=== PATIENT | male | born 1980 | race Caucasian/White ===

== ENCOUNTER 2017-09-11 17:17 | Inpatient (IN) ==
[2017-09-11] MEDS ORDERED: *HR* HYDROmorphone (PF) 1 MG/ML SYRINGE IM ONE (19:39)
[2017-09-11] MEDS ORDERED: Ketorolac 30 MG/ML VIAL IM ONE (19:39)
--- NOTE | 2017-09-11 19:45 | Emergency Department Note ---
Disposition Clinical Impression: Kidney stone on left side, Renal colic Disposition: Admitted As Inpatient Condition: Undetermined Time of Disposition: 19:57 Abdominal Pain HPI - General Chief Complaint: ED Abdominal Pain Stated Complaint: Left kidney pain, N/V Time Seen by Provider: 09/11/17 19:22 Source: patient Mode of arrival: ambulatory Limitations: no limitations Nursing Notes Reviewed: Yes Vital Signs Reviewed: Yes - History of Present Illness HPI Narrative: 37-year-old male with recent diagnosis of kidney stone one day ago that was noted to have a 6 mm left mid ureteral kidney stone. The patient states that this was noted on CT scan and there was no urinary tract infection noted there was,. The patient was discharged home on Levsin, oxycodone. The patient went to a urologist, Dr. Eyal coe who repeated a KUB which demonstrated a mid left ureteral stone that was stable. The patient has been urinating without difficulty. The patient states that after the visit with the urologist he is continued to experience pain. The patient admits to some associated nausea without any other complaints. The patient is very uncomfortable in the room and states this feels very similar to when it occurred last night. He denies any other complaints at this time. Pt Subjective Complaint: flank pain (L) Onset (ago): Just [employer] Consistency: intermittent Location: L flank Pain Severity: severe Pain Scale: 10 Quality: stabbing Radiation: none Migration to: no migration Improves with: nothing Worsens with: nothing Context: history of similar episodes Associated symptoms: Reports: nausea Treatments prior to arrival: NSAIDs, prescription analgesics - Related Data Home Medications Medication Instructions Recorded Confirmed Folic Acid [Folic Acid] 1 mg PO DAILY 09/11/17 09/11/17 Methotrexate [Otrexup] 7.5 mg PO DARBY 09/11/17 09/11/17 Previous Rx's Medication Instructions Recorded Hyoscyamine SL [Levsin SL] 0.125 mg SL TID #21 tab.subl 09/11/17 Ondansetron HCl [Zofran] 4 mg PO TID #21 tablet 09/11/17 Oxycodone HCl/Acetaminophen 1 each PO Q4H #18 tablet 09/11/17 [Percocet 5-325 mg Tablet] Tamsulosin [Flomax] 0.8 mg PO DAILY #14 cap.er.24h 09/11/17 Allergies Allergy/AdvReac Type Severity Reaction Status Date / Time No Known Allergies Allergy Verified 09/11/17 17:42 All systems ED: reviewed and negative except as stated. Constitutional: Denies: fever, chills, weakness ENT ED: Denies: congestion Cardiovascular: Denies: chest pain Respiratory: Denies: dyspnea Gastrointestinal: Reports: abdominal pain, nausea. Denies: vomiting, diarrhea, constipation, hematemesis, melena, hematochezia Genitourinary: Reports: hematuria. Denies: urgency, dysuria, frequency, discharge, testicular pain Musculoskeletal: Denies: back pain, neck pain, arthralgia, myalgia Neurological: Denies: headache Abdominal Pain PMH - Past Medical History Medical history: Reports: no medical history Reports: kidney stone Male Surgical History: Reports: orthopedic, other Psychiatric history: Reports: no psych history - Social History Smoking status: Current every day smoker Alcohol use: Reports: none Drug use: Reports: none Physical Exam - General Limitations: no limitations General appearance: alert, in distress (Due to pain) - Head Head exam: atraumatic, normocephalic, normal inspection - Eye Eye exam: Present: normal appearance, PERRL, EOMI - ENT ENT exam: normal exam, normal oropharynx, mucous membranes moist - Neck Neck exam: Present: normal inspection, full ROM, trachea midline - Chest Chest inspection: Present: normal inspection, symmetric chest wall rise - Respiratory Respiratory exam: Present: normal lung sounds bilaterally - Cardiovascular Cardiovascular exam: Present: regular rate, normal rhythm, normal heart sounds - Abdominal Exam Abdominal exam: Present: soft, tenderness (Left flank). Absent: distention, guarding, rebound, rigidity - Extremities Exam Extremities exam: Present: normal inspection, full ROM. Absent: tenderness, pedal edema Course Vital Signs Temperature 97.6 F 09/11/17 17:39 Pulse Rate 97 09/11/17 17:39 Respiratory Rate 20 09/11/17 17:39 Blood Pressure 164/104 09/11/17 17:39 O2 Sat by Pulse Oximetry 99 09/11/17 17:39 Temperature 98.9 F 09/11/17 23:36 Pulse Rate 95 09/11/17 23:36 Respiratory Rate 16 09/11/17 23:36 Blood Pressure 136/81 09/11/17 23:36 O2 Sat by Pulse Oximetry 95 09/11/17 23:36 Oxygen Delivery Oxygen Delivery Room Air Abdominal Pain - MDM Narrative Medical decision making narrative: After speaking with Dr. Hodge and he stated that he will accept the patient to his service. The patient will likely go to the operating room tomorrow for a stone removal. The patient was made aware and agrees to plan. Basic labs are obtained. The patient was made nothing by mouth after midnight. No further questions or concerns noted at this time. - Medical Records Medical records reviewed: Yes I reviewed the patient's medical records. - Lab Data Result diagrams: 09/11/17 20:19 09/11/17 21:45 Attestation Statement - Attestation Attestation: I examined this patient and my medical decision-making was reviewed with the Resident Physician. I agree with the documented findings, disposition and treatment plan as described except to the extent set forth below. Findings consistent with kidney stone. We will admit to Dr. Hodge. Not recommending any labs at this time. We will admit for pain control.
[2017-09-11] MEDS ORDERED: *HR* HYDROmorphone (PF) 1 MG/ML SYRINGE IVP ONE (19:50)
[2017-09-11] MEDS ORDERED: Ketorolac 15 MG/ML VIAL IVP ONE (19:50)
[2017-09-11] MEDS ORDERED: 0.9 % Sodium Chloride 1,000 ML IVC ONE (19:51)
[2017-09-11 20:31] LABS: Basophils % 0.2 %; Hematocrit 45.2 % (37.5-50.1); Hemoglobin 15.5 g/dL (12.9-16.9); Immature Granulocytes % 0.8 % (0-4); Lymphocytes # 1.1 K/mcL (0.6-4.6); Lymphocytes % 7.9 %; Mean Corpuscular HGB Conc 34.3 g/dL (31.6-35.5); Mean Corpuscular Hemoglobin 32.3 pg (28.0-33.3); Mean Corpuscular Volume 94.2 fL (83.0-100.0); Mean Platelet Volume 10.1 fL (9.4-12.4); Monocytes # 0.5 K/mcL (0.0-1.3); Monocytes % 3.8 %; Neutrophils # 12.1 K/mcL (1.6-8.9); Platelet Count 208 K/mcL (140-400); Red Cell Distribution Width 13.1 % (11.5-14.5); Segmented Neutrophils % 87.3 %
[2017-09-11] MEDS ORDERED: *HR* Morphine 2 MG/ML SYRINGE IVP PRN (20:35)
[2017-09-11] MEDS ORDERED: *HR* HYDROmorphone (PF) 1 MG/ML SYRINGE IVP PRN (20:35)
[2017-09-11] MEDS ORDERED: Ondansetron 4 MG/2 ML VIAL IVP PRN (20:35)
[2017-09-11] MEDS ORDERED: *HR* HYDROcodone/Acet 5/325 mg TABLET PO PRN (20:35)
[2017-09-11] MEDS ORDERED: Naloxone 0.4 MG/ML INJ IVP PRN (20:35)
[2017-09-11] MEDS ORDERED: Ketorolac 15 MG/ML VIAL IVP PRN (20:35)
[2017-09-11] MEDS ORDERED: *HR* Promethazine 25 MG/ML VIAL IVP PRN (20:35)
--- NOTE | 2017-09-11 20:43 | Urology History & Physical ---
Date of Encounter: 09/11/17 Time of Encounter: 20:41 Assessment and Plan (1) Ureteral stone with hydronephrosis Current Visit: Yes Status: Acute Patient admitted secondary to obstructing ureteral stone and intractable pain. We'll provide pain control. Plan for attempted ureteroscopic stone extraction with holmium laser lithotripsy. Patient understands the procedure. We discussed potential risks to his urinary tract, perforation, stricture, stent discomfort, infection. We discussed the potential that if the stone is not accessible he would require a stent placement and subsequent procedure for treatment of the stone. All questions answered. History of Present Illness Chief complaint: Flank pain HPI: Mr. Briceno is a 37 year old male status post second emergency room visit today for flank discomfort. Patient has a 6 mm midureteral calculi with intractable pain. States pain is unbearable. Admitted for likely surgical intervention. Past Med Surg Social Fam HX - Past Medical History Medical history: no medical history Psychiatric history: no psych history - Social History Smoking Status: Current every day smoker Smokeless Tobacco Status: No Alcohol use: none Drug use: none Medications and Allergies Folic Acid [Folic Acid] 1 mg PO DAILY 09/11/17 [History] Hyoscyamine SL [Levsin SL] 0.125 mg SL TID #21 tab.subl 09/11/17 [Rx] Methotrexate [Otrexup] 7.5 mg PO DARBY 09/11/17 [History] Ondansetron HCl [Zofran] 4 mg PO TID #21 tablet 09/11/17 [Rx] Oxycodone HCl/Acetaminophen [Percocet 5-325 mg Tablet] 1 each PO Q4H #18 tablet 09/11/17 [Rx] Tamsulosin [Flomax] 0.8 mg PO DAILY #14 cap.er.24h 09/11/17 [Rx] 3 Allergy/AdvReac Type Severity Reaction Status Date / Time No Known Allergies Allergy Verified 09/11/17 17:42 Review of Systems - Constitutional no fever(s) - EENT Nose, mouth and throat: no dizziness - Cardiovascular no chest pain - Respiratory no cough - Gastrointestinal abdominal pain, nausea - Genitourinary flank pain - Musculoskeletal back pain - Integumentary no erythema - Neurological no confusion - Psychiatric no anxiety - Hematologic/Lymphatic no easy bleeding - Allergic/Immunologic no throat swelling Exam Initial Vital Signs Temp Pulse Resp BP Pulse Ox 97.6 F 97 20 164/104 99 09/11/17 17:39 09/11/17 17:39 09/11/17 17:39 09/11/17 17:39 09/11/17 17:39 - General physical appearance Present: well developed, moderate pain - Eyes Present: PERRL - ENT Present: normal nares - Neck Present: no masses - Cardiovascular Cardiovascular exam IM: RRR - Abdomen Abdomen: Present: soft - Integumentary Present: no rash, no growths - Neurologic Absent: disoriented, confused Urology Results - Labs 09/11/17 20:19 Abnormal lab results WBC 13.8 K/mcL (4.3-11.1) H 09/11/17 20:19 Neutrophils # 12.1 K/mcL (1.6-8.9) H 09/11/17 20:19 All other labs normal.
[2017-09-11 20:45] LABS: Albumin 4.2 g/dL (3.5-5.0); Albumin/Globulin Ratio 1.3 (1.1-2.2); Bilirubin,Total 0.7 mg/dL (0.2-1.2); Calcium 9.9 mg/dL (8.6-10.8); Globulin 3.2 g/dL (2.4-3.5); Potassium 3.8 mEq/L (3.5-4.5); Total Protein 7.4 g/dL (6.0-8.3)
[2017-09-11] MEDS: 0.9 % Sodium Chloride 1,000 ML IVC SCH (21:35)
[2017-09-11 22:07] LABS: Calcium 9.2 mg/dL (8.6-10.8); Potassium 4.1 mEq/L (3.5-4.5)
[2017-09-12] MEDS ORDERED: cefTRIAXone 1,000 MG in Water for inj. (sterile) 10 ML IVP SCH (09:00)
--- NOTE | 2017-09-12 16:17 | Anesthesia Evaluation PreOp ---
Date of Encounter: 09/12/17 Time of Encounter: 16:15 - Past History Planned Operation: L-ureteral stent extraction, laser litho Cardiac History: Denies any Significant Hx Pulmonary History: Smoker (1-1/2ppd x 20yrs) [employer] History: Denies Any Significant HX Other Medical History: Renal (Hx of kidney stones), GERD (IBS maintained on Hyoscamine), Other Anesthesia History: No Prior Anesthetic Complications, Past Anesthesia Alcohol Use: none Drug use: none Medications and Allergies Folic Acid [Folic Acid] 1 mg PO DAILY 09/11/17 [History] Hyoscyamine SL [Levsin SL] 0.125 mg SL TID #21 tab.subl 09/11/17 [Rx] Methotrexate [Otrexup] 7.5 mg PO DARBY 09/11/17 [History] Ondansetron HCl [Zofran] 4 mg PO TID #21 tablet 09/11/17 [Rx] Oxycodone HCl/Acetaminophen [Percocet 5-325 mg Tablet] 1 each PO Q4H #18 tablet 09/11/17 [Rx] Tamsulosin [Flomax] 0.8 mg PO DAILY #14 cap.er.24h 09/11/17 [Rx] 3 Allergy/AdvReac Type Severity Reaction Status Date / Time No Known Allergies Allergy Verified 09/11/17 17:42 - Meds/Allergy Pre-op Review Medications Reviewed: Yes Allergies Reviewed: Yes Beta Blockers on Current Med List: No Anesthesia Results - Labs 09/11/17 20:19 09/11/17 21:45 Laboratory Tests 09/11/17 21:45 Est GFR (Non-Af Amer) 44 L Anesthesia Exam Vital Signs Temp Pulse Resp BP Pulse Ox 09/12/17 14:57 99.0 F 78 14 120/67 97 09/12/17 11:25 98.2 F 79 14 117/71 97 09/12/17 07:16 98.9 F 85 14 136/70 95 09/12/17 04:34 98.6 F 84 15 131/78 95 09/11/17 23:36 98.9 F 95 16 136/81 95 09/11/17 21:31 98.6 F 90 16 166/100 96 09/11/17 21:03 16 155/98 09/11/17 17:39 97.6 F 97 20 164/104 99 Intake and Output 09/12/17 09/12/17 09/12/17 07:59 15:59 23:59 Intake Total 0 / 0 0 / 0 Output Total 300 / 300 1200 / 1200 Balance -300 / -300 -1200 / -1200 Intake: Oral 0 / 0 0 / 0 Output: Urine 300 / 300 1200 / 1200 Other: Weight 90.1 kg Blood Glucose* 87 Patient Weight 09/12/17 23:59 Weight 90.1 kg Height: 5'11" Weight: 198# bmi = 27.7 NPO (# of Hours): MNOC - HEENT Pupil (Motor): Pupils equal, EOMI Mallampati: II Teeth: Poor dentition Oral Opening: Greater than 3 - [employer] LOC: Oriented [employer] Motor: Normal RUE, Normal LUE, Normal RLE, Normal LLE, Normal Face [employer] Sensory: Normal: RUE, LUE, RLE, LLE, Face - Cardiac Rhythm: Regular Murmur: None - Pulmonary Breath Sounds: bilateral Clear Respiratory Effort: Symmetrical Anesthesia Assess/Plan ASA Score: 2 Modified Towner Scale for Level of Consciousness: Cooperative, oriented, and tranquil Anesthetic Plan: General Monitoring Plan: Standard Monitors (Pt seen/evaluated, R&B discussed, questions answered and consent obtained. Homer Sherman MD) Recovery Plan: PACU Anes Supervising Prov Stmt: Pt seen/evaluated, R&B Discussed, questions answered and consent obtained. Homer Sherman MD
[2017-09-12] MEDS ORDERED: Acetaminophen IV 1,000 MG/100 ML INFUS..BTL ONE (17:53)
[2017-09-12] MEDS ORDERED: *HR* Propofol 200 MG/20 ML VIAL IVP ONE (18:05)
[2017-09-12] MEDS ORDERED: Lidocaine -MPF 2% 2 ML VIAL ONE (18:05)
[2017-09-12] MEDS ORDERED: Ondansetron 4 MG/2 ML VIAL ONE (18:24)
[2017-09-12] MEDS ORDERED: *HR* FentaNYL (PF) 100 MCG/2 ML VIAL ONE (18:24)
[2017-09-12] MEDS ORDERED: Dexamethasone 4 MG/ML VIAL ONE (18:24)
--- NOTE | 2017-09-12 19:03 | Operative Note ---
Date of procedure: 09/12/17 Pre-op diagnosis: left 6 mm ureteral stone Post-op diagnosis: same Procedure: left ureteroscopic stone extraction with holmium laser left RPG left JJ stent Anesthesia: GETA Surgeon: Deniz Hodge Estimated blood loss (cc): 2 Specimen: stone Condition: stable Disposition: PACU Procedure in Detail: PROCEDURE IN DETAIL: Patient was taken back to the operating room, positioned supine on the operating table. Anesthesia was applied without complication. They were moved into dorsal lithotomy. Careful attention was maintained to cushion all pressure points for patient's safety. They were prepped and draped in sterile fashion. Time-out was performed with the proper patient and procedure. A 21-Afghan rigid cystoscope was inserted into the bladder without difficulty. Systematic examination of bladder revealed no abnormalities. The ureteral orifice was cannulated using a 5-Afghan ureteral Catheter and a retrograde pyelogram was performed using Isovue. A filling defect was identified which corresponded to the stone. At that point, a zip wire was placed through the 5-Afghan and confirmed in the renal pelvis with fluoroscopy. An 8-10 dilator was then placed over the zip wire to passively dilate the ureteral orifice. I was unable to pass a flexible ureteroscope. I eventually placed an 11 x 13 46 flank access sheath. It did passed with minimal resistance up to the level of the stone. I then passed the flexible ureteroscope through the access sheath. The stone was encountered which I felt required laser lithotripsy A 200 micron holmium laser fiber on a setting of 8 and 800 was used to fragment the stone into multiple pieces. The fragments were individually basketed out of the ureter with a 1.9 tipless basket. All stone in the ureter was removed. I did examine the renal pelvis and calyceal systems which were clear of stone. A 4.8 x 26 ureteral stent was placed over the zip wire under fluoroscopy without complication. No string was left attached to the stent. Bladder was drained through the cystoscope.
--- NOTE | 2017-09-12 19:29 | Anesthesia Evaluation Post Op ---
Date of Encounter: 09/12/17 Time of Encounter: 19:28 - Vital Signs Vital Signs: Vital Signs/O2 Sat, Most Current Temp Pulse Resp BP Pulse Ox 98.9 F 85 16 137/92 95 09/12/17 19:23 09/12/17 19:23 09/12/17 19:23 09/12/17 19:23 09/12/17 19:23 - Lungs Lungs: Clear Ascult./Percussion - Airway Airway: Non-obstructed - Cardiovascular Regular Rate - Mental Status Mental Status: Alert & Oriented, Answers Appropriately - Pain Pain Scale: 0 Pain Scale used: Numeric (1 - 10) - Nausea Vomiting Nausea Vomiting: Not Present - Hydration Hydration: Ice chips, Has not voided - Discharge PostOp Status: Transfer Patient to floor
[2017-09-12] MEDS ORDERED: Naloxone 0.4 MG/ML INJ IVP PRN (19:41)
[2017-09-12] MEDS ORDERED: Hyoscyamine SL 0.125 MG TAB.SUBL SL PRN (19:41)
[2017-09-12] MEDS ORDERED: *HR* Promethazine 25 MG/ML VIAL IVP PRN (19:41)
[2017-09-12] MEDS ORDERED: *HR* HYDROcodone/Acet 5/325 mg TABLET PO PRN (19:41)
[2017-09-12] MEDS ORDERED: 0.9 % Sodium Chloride 1,000 ML IVC SCH (19:41)
[2017-09-12] MEDS ORDERED: *HR* Morphine 2 MG/ML SYRINGE IVP PRN (19:41)
[2017-09-12] MEDS ORDERED: Ondansetron 4 MG/2 ML VIAL IVP PRN (19:41)
[2017-09-12] MEDS ORDERED: *HR* HYDROmorphone (PF) 1 MG/ML SYRINGE IVP PRN (19:41)
[2017-09-12] MEDS: 0.9 % Sodium Chloride 1,000 ML IVC SCH ×2 (19:53→22:37)
[2017-09-13 01:13] LABS: BUN/Creatinine Ratio 11 (6-26); Blood Urea Nitrogen 13 mg/dL (8-26); Calcium 8.8 mg/dL (8.6-10.8); Carbon Dioxide 23 mEq/L (19-29); Chloride 110 mEq/L (98-109); Glucose 126 mg/dL (70-99); Osmolality,Calculated 290 (280-300); Potassium 4.3 mEq/L (3.5-4.5); Sodium 139 mEq/L (136-145); eGFR For African Americans > 60 (> 60); eGFR For Non-African Americans > 60 (> 60)
[2017-09-13 06:42] VITALS: BP 136/82
--- NOTE | 2017-09-13 07:17 | Discharge Summary ---
Date of Encounter: 09/13/17 Time of Encounter: 07:14 - Discharge Diagnosis (1) Ureteral stone with hydronephrosis Priority: Primary Status: Resolved (2) Acute renal insufficiency Priority: Secondary Status: Resolved - Discharge Medications Prescriptions: Phenazopyridine [Pyridium] 200 mg PO TID PRN #15 tablet PRN Reason: burning with urination Home Medications: Folic Acid [Folic Acid] 1 mg PO DAILY 09/11/17 [History] Methotrexate [Otrexup] 7.5 mg PO DARBY 09/11/17 [History] Oxycodone HCl/Acetaminophen [Percocet 5-325 mg Tablet] 1 each PO Q4H #18 tablet 09/11/17 [Rx] Phenazopyridine [Pyridium] 200 mg PO TID PRN #15 tablet 09/13/17 [Rx] Allergies/Adverse Reactions: 3 Allergy/AdvReac Type Severity Reaction Status Date / Time No Known Allergies Allergy Verified 09/11/17 17:42 Labs on day of discharge: Labs from last 24 hours 09/13/17 00:37 Sodium 139 Potassium 4.3 Chloride 110 H Carbon Dioxide 23 BUN 13 Creatinine 1.15 Est GFR ( Amer) > 60 Est GFR (Non-Af Amer) > 60 BUN/Creatinine Ratio 11 Glucose 126 H Calculated Osmolality 290 Calcium 8.8 Date of admission: 09/12/17 19:41 Primary care physician: PCP ARTEM Discharging clinician: Deniz Hodge Anticipated date of discharge: 09/13/17 - Patient Status Disposition: Home, Self-Care Condition: Good Functional capacity at discharge: independent ambulation Overall status at discharge: patient is progressing back to baseline - Discharge Instructions Follow Up With: NONE,PCP [Primary Care Provider] - Deniz Hodge MD [Partnered Physician] - (My office will call with appointment for stent removal) Additional Instructions: Expect stent discomfort including urgency, frequency, burning on urination, light blood in the urine. This is normal and will resolve when the stent is removed My office will call to schedule stent removal Call if fever over 101 or excessive symptoms No activity restrictions. - Diet and Activity Activity: resume usual activities as tolerated Diet: advance to your usual diet - Hospital Course Hospital course: Mr. Briceno is a 37 year old male POD#1 stone extraction. doing well. minimal stent discomfort. Cr returned to normal.. no fever. - Time Spent with Patient Total time spent providing and/or coordinating discharge services: Exam Initial Vital Signs Temp Pulse Resp BP Pulse Ox 97.6 F 97 20 164/104 99 09/11/17 17:39 09/11/17 17:39 09/11/17 17:39 09/11/17 17:39 09/11/17 17:39 - General physical appearance Present: well developed, no distress - VTE Documentation of Mechanical Device: Intermittent pneumatic compression device
[2017-09-13] MEDS ORDERED: cefTRIAXone 1,000 MG in Water for inj. (sterile) 10 ML IVP SCH (09:00)
[2017-09-14] MEDS ORDERED: *HR* Methotrexate 2.5 MG TABLET PO SCH (18:12)
== END 2017-09-13 08:27 | disposition home or self-care (01) | DRG 446 ==
LOC: EMEROO 17:17 → 3ANU 17:17
PROVIDERS: ADMIT Urology; ATTEND Urology